=== PATIENT | female | born 1990 | race Caucasian/White ===

== ENCOUNTER → 2016-11-15 | Outpatient (CLI) | payer BC ==
[~2016-11-15] MED LIST: CLX40 PO; PRENTAB26 PO
== END | disposition home or self-care (01) ==
LOC: C.LAB1850 08:46
PROVIDERS: ATTEND Obstetrics & Gynecology
DX: O28.9 Unspecified abnormal findings on antenatal screening of mother (principal)

== ENCOUNTER → 2017-01-11 | Outpatient (CLI) | payer BC ==
[2017-01-11 18:31] LABS: URINE APPEARANCE CLEAR (CLEAR); URINE BILIRUBIN NEG (NEG); URINE COLOR YELLOW; URINE EPITHELIAL CELL AUTO >30 /lpf (0-5); URINE NITRITE NEG (NEG); URINE SPECIFIC GRAVITY 1.014 (1.000-1.030); UROBILINOGEN NEG (NEG)
[2017-01-11 18:48] LABS: MANUAL MICROSCOPIC REQUIRED? NO; REVIEW REQ? NO
== END | disposition home or self-care (01) ==
LOC: C.LABSPEC 17:22
PROVIDERS: ATTEND Obstetrics & Gynecology
DX: Z34.83 Encounter for supervision of other normal pregnancy, third trimester (principal)

== ENCOUNTER → 2017-01-11 | Outpatient (CLI) | payer BC ==
[2017-01-11 16:36] LABS: HEMATOCRIT 34.9 % (37-47)
== END | disposition home or self-care (01) ==
LOC: C.LAB1850 08:21
PROVIDERS: ATTEND Obstetrics & Gynecology
DX: O28.9 Unspecified abnormal findings on antenatal screening of mother (principal)

== ENCOUNTER 2017-01-31 13:55 | Outpatient (CLI) | payer BC ==
[~2017-01-31] VITALS: Ht 172.7 cm; Wt 130.0 kg
[~2017-01-31 13:55] MED LIST changes: -PRENTAB26 PO
[2017-01-31 14:46] VITALS: Ht 172.7 cm; Wt 130.0 kg
[2017-01-31 15:34] LABS: URINE APPEARANCE CLEAR (CLEAR); URINE BILIRUBIN NEG (NEG); URINE COLOR YELLOW; URINE EPITHELIAL CELL AUTO 20-30 /lpf (0-5); URINE NITRITE NEG (NEG); URINE SPECIFIC GRAVITY 1.011 (1.000-1.030); UROBILINOGEN NEG (NEG); ZZUR CULT IF INDIC CLEAN CATCH NO
[2017-01-31 15:37] LABS: MANUAL MICROSCOPIC REQUIRED? NO; REVIEW REQ? NO
== END 2017-01-31 16:23 | disposition home or self-care (01) ==
LOC: C.LD 13:55 → C.OPB 13:55
PROVIDERS: ATTEND Obstetrics & Gynecology
DX: Z34.83 Encounter for supervision of other normal pregnancy, third trimester (principal); Z3A.31 31 weeks gestation of pregnancy

== ENCOUNTER → 2017-03-08 | Outpatient (CLI) | payer BC ==
[~2017-03-08] MED LIST changes: +PRENTAB26 PO
== END | disposition home or self-care (01) ==
LOC: C.LABSPEC 16:29
PROVIDERS: ATTEND Obstetrics & Gynecology
DX: O24.410 Gestational diabetes mellitus in pregnancy, diet controlled (principal)

== ENCOUNTER 2017-03-10 15:11 | Outpatient (CLI) | payer BC ==
[~2017-03-10] VITALS: Ht 172.7 cm; Wt 134.7 kg
[~2017-03-10 15:11] MED LIST changes: -PRENTAB26 PO
[2017-03-10] MEDS ORDERED: PRENTAB26 PO (15:40)
[2017-03-10 16:05] VITALS: Ht 172.7 cm; Wt 134.7 kg
== END 2017-03-10 15:57 | disposition home or self-care (01) ==
LOC: C.LD 15:11 → C.OPB 15:11
PROVIDERS: ATTEND Obstetrics & Gynecology
DX: O62.9 Abnormality of forces of labor, unspecified (principal); Z3A.36 36 weeks gestation of pregnancy

== ENCOUNTER 2017-03-29 16:44 | Inpatient (IN) | payer BC ==
[~2017-03-29] VITALS: Ht 172.7 cm; Wt 137.4 kg
[~2017-03-29 16:44] MED LIST changes: -CLX40 PO; +PRENTAB26 PO
[2017-03-29 17:31] VITALS: Ht 172.7 cm; Wt 137.4 kg
[2017-03-29 17:42] LABS: BASO % 0.1 %; BASO ABS # 0.01 K/uL (0-0.2); EOS % 1.5 %; HEMATOCRIT 34.2 % (37-47); IG% 0.2 %; LYMPH % 16.5 %; LYMPH ABS # 1.43 K/uL (1.2-3.4); MEAN CELL VOLUME 88.6 fL (80-100); MEAN CORPUSCULAR HEMOGLOBIN 30.8 pg (25-34); MEAN PLATELET VOLUME 9.9 fL (7.4-10.4); MONO % 8.1 %; NEUT % 73.6 %; PLATELET COUNT 236 K/uL (130-400); RED BLOOD COUNT 3.86 M/uL (4.2-5.4); WHITE BLOOD COUNT 8.65 K/uL (4.8-10.8)
[2017-03-29 17:44] LABS: COMPLETE YES; MEAN CORPUSCULAR HGB CONC 34.8 g/dl (32-36)
[2017-03-29 17:58] LABS: INR 0.9 (0.9-1.1); PROTHROMBIN TIME (PATIENT) 9.4 SECONDS (9.0-12.0)
[2017-03-29 18:04] LABS: ALKALINE PHOSPHATASE 182 U/L (45-117); ALT/SGPT 19 U/L (12-78); AST/SGOT 16 U/L (15-37); CREATININE 0.55 mg/dl (0.60-1.20); URIC ACID 4.8 mg/dl (2.6-7.2)
[2017-03-29] MEDS ORDERED: LACTATED RINGER'S 1000ML 1,000 ML IV PRN (18:25)
[2017-03-29] MEDS ORDERED: LACTATED RINGER'S 1000ML 500 ML IV PRN (18:28)
[2017-03-29] MEDS: ACETAMINOPHEN 325 MG TAB PO PRN (18:59)
[2017-03-30] MEDS: ACETAMINOPHEN 325 MG TAB PO PRN (01:17)
[2017-03-30] MEDS ORDERED: OXYTOCIN 30 UNITS/500ML NSS IV PRN ×2 (06:00→12:30)
[2017-03-30] MEDS: LACTATED RINGER'S 1000ML 1,000 ML IV SCH ×2 (06:12→10:01)
--- NOTE | 2017-03-30 07:30 | Medical Student: [facility] ---
Med Student History & Physical Date of Service Mar 30, 2017. Chief Complaint Elevated Bp Affecting In Third Trimester History of Present Illness Source: patient Ms. Whitmore is a 26-year-old 2 para 1-0-0-1 who is 39 weeks + 2/7 days with an EDC of 04/04/2017 who presents to L&D after being referred from the outpatient [facility] OB office for elevated blood pressure. Yesterday in the office around 4:30, her blood pressure was measured to be 148/90. Ms. Whitmore denies hypertension at any other point in the other than one other visit where a recheck was found to be normal. She also said that she had no protein in her urine or any associated symptoms at the time. She denied headache, RUQ pain, visual changes, nausea or vomiting yesterday as well. Since she's been here on the unit, she denies vaginal bleeding. She is still feeling movements and has only had leakage of fluids after Dr. Curry ruptured her membranes. She describes her contractions as "sporadic and not timeable yet. " She currently has a Gaytan bulb in place and was started on pitocin. Patient has had a weight gain of 60 pounds during this and has been followed by [facility]. Her blood pressures have ranged 112-148 systolic and 60-90 diastolic. She denied a quad screen for this . Ultrasounds were found to be normal except for poor visualization of the heart. A cardiac echo was performed by Dr. Washington at [facility] on 01/17/17 and was found to be normal. Patients blood type is O+ and CBC was normal on January 11 other than a hematocrit of 34.9. Gonorrhea, chlamydia, HIV, RPR, GBS, RPR and HBsAg were all found to be negative prenatally. She is immune to Rubella and most recent pap smear showed no intraepithelial lesions or malignancy. Her first 1hr glucose tolerance test in September was 138 mg/dl. Current has been complicated only by gestational diabetes mellitus which has been diet- controlled. OB History Patient has one son named Jose R who is 8 years old. He was born vaginally here at the [facility] delivered by Dr. Croft in November 2008 at 8 lbs 0.5 oz without any complications during labor. She also denied any or puerperal problems. ARMATURE CONNECTOR History Menstrual History: Menarche - 12 years old Duration - 4 days Cycle - every 4 weeks Flow - no problems or complaints Intramenstrual bleeding - denies Gynecologic History: Pap smear - Denies any medical problems with her breasts or reproductive organs other than a history of abnormal pap smears. After the of her son, she had repeated abnormal pap smears and subsequently had LEEP in 2008 or 2009. Pap smears have been normal since this procedure. She denies any history of other sexually transmitted infections. Contraception - On 'the pill' in high school but then used Mirena x2 for 7 years. She was on 'the pill' again before stopping it in preparation for the current . Past Medical History 1. Headaches - relieved by Raul. 2. History of anxiety - being followed by Dr. Armstrong. Has not taken citalopram in 2 months. Has not taken Xanax since she has found out she was . Past Surgical History None. Family History Patient reports parents, siblings, and son are all healthy and have no medical problems. Maternal grandmother was diagnosed with diabetes mellitus late in life. Social History Smoking Status: Current Every Day Smoker (2 cigarettes per day) Smokeless Tobacco Use: No Alcohol Use: occasionally (1 glass of wine every 2 months during ) Drug Use: none Marital Status: in relationship (with father of this . First child of different father. 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[employer]) Allergies Coded Allergies: No Known Allergies (Verified , ., 03/29/17) Home Medications Multivit/Min/Iron/Fol Ac/Pren ( Vitamin), 1 TAB PO DAILY Review of Systems Constitutional: No fever, No chills Eyes: No worsening of vision ENT: No hearing loss Respiratory: No shortness of breath Cardiovascular: No chest pain Abdomen: No nausea, No vomiting Psychiatric: No depression symptoms, No anxiety Integumentary: No color change Physical Exam General Appearance: WD/WN, no apparent distress Eyes: normal inspection, PERRL, sclerae normal Neck: supple, no adenopathy, thyroid normal, no carotid bruits Respiratory/Chest: lungs clear, normal breath sounds Cardiovascular: regular rate, rhythm Abdomen / GI: normal bowel sounds, non tender, no organomegaly (no hepatomegaly appreciated) Back: normal inspection, no CVA tenderness (and no paraspinal tenderness) Extremities: + pedal edema Skin: normal color, warm/dry Monitor Baseline: 140s Variability: moderate Accelerations: present Decelerations: none Category: I Laboratory Results 03/29/17 17:35 Red Blood Count 3.86, Mean Corpuscular Volume 88.6, Mean Corpuscular Hemoglobin 30.8, Mean Corpuscular Hemoglobin Concent 34.8, Mean Platelet Volume 9.9, Neutrophils (%) (Auto) 73.6, Lymphocytes (%) (Auto) 16.5, Monocytes (%) (Auto) 8.1, Eosinophils (%) (Auto) 1.5, Basophils (%) (Auto) 0.1, Neutrophils # (Auto) 6.36, Lymphocytes # (Auto) 1.43, Monocytes # (Auto) 0.70, Eosinophils # (Auto) 0.13, Basophils # (Auto) 0.01 03/29/17 17:35 Test 03/29/17 17:35 White Blood Count 8.65 K/uL (4.8-10.8) Red Blood Count 3.86 M/uL (4.2-5.4) Hemoglobin 11.9 g/dL (12.0-16.0) Hematocrit 34.2 % (37-47) Mean Corpuscular Volume 88.6 fL (80-100) Mean Corpuscular Hemoglobin 30.8 pg (25-34) Mean Corpuscular Hemoglobin Concent 34.8 g/dl (32-36) Platelet Count 236 K/uL (130-400) Mean Platelet Volume 9.9 fL (7.4-10.4) Neutrophils (%) (Auto) 73.6 % Lymphocytes (%) (Auto) 16.5 % Monocytes (%) (Auto) 8.1 % Eosinophils (%) (Auto) 1.5 % Basophils (%) (Auto) 0.1 % Neutrophils # (Auto) 6.36 K/uL (1.4-6.5) Lymphocytes # (Auto) 1.43 K/uL (1.2-3.4) Monocytes # (Auto) 0.70 K/uL (0.11-0.59) Eosinophils # (Auto) 0.13 K/uL (0-0.5) Basophils # (Auto) 0.01 K/uL (0-0.2) RDW Standard Deviation 43.3 fL (36.4-46.3) RDW Coefficient of Variation 13.4 % (11.5-14.5) Immature Granulocyte % (Auto) 0.2 % Immature Granulocyte # (Auto) 0.02 K/uL (0.00-0.02) Prothrombin Time 9.4 SECONDS (9.0-12.0) Prothromb Time International Ratio 0.9 (0.9-1.1) Est Creatinine Clear Calc Drug Dose 224.3 ml/min Estimated GFR () 147.9 Estimated GFR (Non- 127.6 Uric Acid 4.8 mg/dl (2.6-7.2) Total Bilirubin 0.3 mg/dl (0.2-1) Direct Bilirubin < 0.1 mg/dl (0-0.2) Aspartate Amino Transf (AST/SGOT) 16 U/L (15-37) Alanine Aminotransferase (ALT/SGPT) 19 U/L (12-78) Alkaline Phosphatase 182 U/L (45-117) Total Protein 6.5 gm/dl (6.4-8.2) Albumin 2.6 gm/dl (3.4-5.0) Assessment and Plan This is a 26-year-old admitted to labor and delivery for referral for hypertension in . Patient has a Gaytan bulb in place and membranes were ruptured by Dr. Curry. Fluid has been draining clear. Labs have been reviewed. Platelets, bilirubin, and AST levels are normal and are not concerning for HELLP syndrome currently. Patient denies symptoms of eclampsia or HELLP syndrome including lack of seizure, scleral icterus, nausea vomiting RUQ or epigastric pain, headache, or visual changes as well. - Continue and maternal monitoring. - Allow patient to take in clear fluids. - Monitor for timeable contractions and signs of true labor. - Patient to be getting epidural for pain control. Anticipate normal spontaneous vaginal delivery.
[2017-03-30] MEDS ORDERED: BUPIVACAINE 0.25% 30 ML VIAL ONE (09:24)
[2017-03-30] MEDS ORDERED: EpHEDrine SULFATE INJ 50 MG/ML AMP ONE (09:25)
[2017-03-30] MEDS ORDERED: FENTANYL 2MCG/ML ROPIV 1.25MG/ML 100ML BAG EPI ONE (09:25)
[2017-03-30] MEDS ORDERED: FENTANYL CITRATE INJ 50 MCG/1 ML 2 ML VIAL ONE (09:25)
[2017-03-30] MEDS ORDERED: LACTATED RINGER'S 1000ML 500 ML IV PRN (11:05)
[2017-03-30] MEDS ORDERED: NALOXONE HCL INJ 1 MG in SODIUM CHLORIDE 0.9% 1000ML 1,000 ML IV PRN (11:05)
[2017-03-30] MEDS ORDERED: NALOXONE HCL INJ 0.4 MG/1 ML VIAL/CARP IV PRN (11:15)
[2017-03-30] MEDS ORDERED: ONDANSETRON INJ 2 MG/ML 2 ML VIAL IV PRN (11:15)
[2017-03-30] MEDS ORDERED: DiphenhydrAMINE HCL 50 MG/ML VIAL IV PRN (11:15)
[2017-03-30] MEDS ORDERED: NALBUPHINE HCL INJ 10 MG/ML AMP IV PRN (11:15)
[2017-03-30] MEDS ORDERED: EpHEDrine SULFATE INJ 50 MG/ML AMP IV PRN (11:15)
[2017-03-30] MEDS ORDERED: FENTANYL 2MCG/ML ROPIV 1.25MG/ML 100ML BAG EPI PRN (11:15)
[2017-03-30] MEDS ORDERED: BENZOCAINE 20% AER SPR 82.5 GM CAN EXT PRN (12:30)
[2017-03-30] MEDS ORDERED: LANOLIN OINT EXT PRN ×2 (12:30)
[2017-03-30] MEDS ORDERED: ACETAMINOPHEN 325 MG TAB PO PRN (12:30)
[2017-03-30] MEDS ORDERED: HYDROCORTISONE ACETATE 25 MG SUPP PR PRN (12:30)
[2017-03-30] MEDS ORDERED: DIPHTHERIA/TETANUS/PERTUSSIS 0.5 ML SYR/VIAL IM. ONE (12:30)
[2017-03-30] MEDS ORDERED: SUPERCREAM 0.870 % 15GM JAR EXT PRN (12:30)
[2017-03-30] MEDS ORDERED: ACETAMINOPHEN/CODEINE 300/30MG TAB PO PRN ×2 (12:30)
[2017-03-30] MEDS ORDERED: OXYCODONE/ACETAMINOPHEN 5-325 TAB PO PRN (12:30)
--- NOTE | 2017-03-30 12:36 | Medical Student: [facility] ---
Medical Student Delivery Note Anila Whitmore is a 26-year-old G2 now P2 at 39 weeks + 2/7 days with a history of diet-controlled gestational diabetes who was admitted to L&D for elevated blood pressure at 148/90 measured in the office. Labor was aided by Pitocin and Gaytan bulb catheter. After the catheter was removed, Dr. Curry manually ruptured membranes. The patient progressed to complete dilation, complete effacement, and 0 station and began to push. A viable female infant weighing 3651 grams at 11:58AM was delivered. There was no nuchal cord, and mouth and nose were bulb suctioned. The infant was delivered in the right occiput transverse position by Dr. Guerda Anderson, assisted by Kimmy Jennings, MS3. A pop was heard during delivery during delivery of the shoulder. The cord was clamped twice and transected by the father, and cord blood was collected. The was taken by the awaiting nurse for drying and evaluation. The placenta was then delivered with jarett downward traction and uterine massage, and it was found the be intact with a 3 vessel cord. The fundus hardened with some bleeding without requiring intervention. The posterior vagina had a first degree laceration that was repaired with a single suture of 3-0 Vicryl in a figure-of-8 fashion. scores were 8 and 9. Placenta and umbilical artery blood gas were sent. EBL was 400 cc.
--- NOTE | 2017-03-30 13:49 | Anesthesia Procedure Note ---
Anesthesia Epidural Removal Nt Date & Time Mar 30, 2017 at 13:49 Vital Signs Pain Intensity: 6.0 Notes Mental Status: alert / awake / arousable, participated in evaluation Nausea / Vomiting: adequately controlled Pain: adequately controlled Airway Patency, RR, SpO2: stable & adequate BP & HR: stable & adequate Hydration State: stable & adequate Neuraxial Anesthesia: was administered Anesthetic Complications: no major complications apparent, pt satisfied with anesthetic care Epidural: removed without complications, with tip intact
[2017-03-30 16:00] VITALS: BP 137/90; PULSE 94; TEMP 37
[2017-03-30] MEDS: IBUPROFEN 600 MG TAB PO PRN ×2 (17:08→20:53)
--- NOTE | 2017-03-30 17:58 | DELIVERY SUMMARY ---
DATE OF OPERATION: 03/30/2017 PREOPERATIVE DIAGNOSES: 1. Intrauterine at 39-1/7 weeks. 2. Gestational hypertension. 3. Diet controlled gestational diabetes. 4. Obesity. POSTOPERATIVE DIAGNOSES: 1. Same. 2. Mild shoulder dystocia. PROCEDURES: 1. Gaytan bulb catheter for cervical ripening. 2. Pitocin augmentation. 3. Amniotomy for clear fluid. 4. Epidural anesthetic. 5. Normal spontaneous vaginal delivery. 6. First degree perineal laceration with repair. SURGEON: Dr. Croft. ANESTHESIA: Epidural. ESTIMATED BLOOD LOSS: 400 mL. DESCRIPTION OF PROCEDURE: The patient was found to have blood pressures of 140s/90s in the office at 39-1/7 weeks. She was evaluated in labor and delivery. Her labs were normal, she had no signs or symptoms of preeclampsia, but given the elevated blood pressures, and the gestational age it was determined she was an appropriate candidate for induction of labor. was also complicated by diet controlled gestational diabetes; however, at her last ultrasound, the abdominal circumference was noted to be in the 96th percentile on March 15 at 37 weeks. The patient was admitted, she underwent a Gaytan bulb cervical ripening on the evening of . On the morning of the the Gaytan bulb was removed, she was 4/100/-2, she was ruptured for clear fluid and Pitocin was started. Once she was 6 cm she underwent an epidural anesthetic, which was unfortunately not very helpful for her. However, she did progress quite rapidly from 6 to 8 to 9 and then complete and zero station. She felt an urge to push, pushed very effectively to deliver a viable female infant over intact perineum. It appeared that the head restituted in [place] presentation, there was no nuchal cord and I attempted to deliver the anterior shoulder and a shoulder dystocia was identified. The shoulder dystocia was resolved with suprapubic pressure and Flaquita maneuver. As the shoulder was being delivered, it was discovered it was the left shoulder that was anterior, the head then turned and restituted in [place] presentation and the rest of the baby was then delivered. From delivery of the head to delivery of the shoulder was approximately 40 seconds. The cord was clamped and cut. The infant was taken over to the waiting octave board racker for drying and attention. Cord blood and gasses were obtained. The placenta was delivered spontaneously intact with a 3-vessel cord. Cervix, sulci and rectum were examined and found to be intact as well as the perineum. A small vaginal laceration at the introitus was repaired with 1 figure of eight suture of 3-0 Vicryl. Hemostasis was obtained with dilute Pitocin and fundal massage. Apgars were 8 and 9. Weight is pending. Mother and baby doing well at the end of the delivery. I attest to the content of the Intraoperative Record and any orders documented therein. Any exceptions are noted below. MTDD
[2017-03-30 19:15] VITALS: BP 137/88; PULSE 93; TEMP 36.8
[2017-03-30] MEDS: DOCUSATE SODIUM 100 MG CAP PO SCH (20:05)
[2017-03-31 00:30] VITALS: BP 138/83; PULSE 82; TEMP 36.5; O2SAT 97
[2017-03-31 03:40] VITALS: BP 136/84; PULSE 85; TEMP 36.5; O2SAT 97
[2017-03-31] MEDS: IBUPROFEN 600 MG TAB PO PRN (05:39)
--- NOTE | 2017-03-31 06:17 | Medical Student: [facility] ---
Med Student ARMHOLE BASTER HAND Progress Nt Date of Service Mar 31, 2017. Subjective conversation w/ patient Ambulation: ambulating normally Voiding: no voiding problems Passing Gas: Yes Diet Tolerance: Regular Diet Feeding Type: Breast Feeding Pain: "crampy" and low back pain - tolerating well Notes: Anila is a 26-year-old with gestational hypertension who is day 1 for normal spontaneous vaginal delivery. She is doing "great" and has no complaints currently. Continues to deny headache, nausea, vomiting, and abdominal pain. Review of Systems Constitutional: No fever, No chills Respiratory: No shortness of breath Cardiac: No chest pain Breast: No problem reported Abdomen: No nausea, No vomiting Objective Vital Signs Date Time Temp Pulse Resp B/P (MAP) Pulse Ox O2 Delivery O2 Flow Rate FiO2 03/31/17 03:40 36.5 85 20 136/84 (101) 97 Room Air 03/31/17 00:30 97 Room Air 03/31/17 00:30 36.5 82 20 138/83 (101) 97 Room Air 03/30/17 19:15 36.8 93 20 137/88 (104) Room Air 03/30/17 16:00 Room Air 03/30/17 16:00 37.0 94 20 137/90 (106) Room Air Physical Exam General Appearance: WELL-APPEARING, WD/WN Respiratory/Chest: lungs clear Cardiovascular: regular rate, rhythm, no gallop, + systolic murmur (likely of normal ) Abdomen: normal bowel sounds, soft Fundus: Firm Extremities: no calf tenderness, + pedal edema (trace on left leg) No paraspinal or CVA tenderness Laboratory Results Last 24 Hours Test 03/31/17 04:44 Assessment and Plan Post- Day Number: 1 Continue Routine Care: Anila is a 26-year-old with gestational hypertension who is day 1 for normal spontaneous vaginal delivery. - Continue routine care - Discuss signs of HELLP syndrome and eclampsia to recognize with the patient.
[2017-03-31 07:32] LABS: HEMATOCRIT 30.4 % (37-47)
--- NOTE | 2017-03-31 07:48 | Progress Note ---
Subjective Mar 31, 2017. Subjective conversation w/ patient, physical exam, lab review Ambulation: ambulating normally Voiding: no voiding problems Passing Gas: Yes Diet Tolerance: Regular Diet Lochia: Small Feeding Type: Breast Feeding Pain: controlled Comment: Patient feeling really well. Notes no s/s of pet. Inducted for ghtn Objective Vital Signs Date Time Temp Pulse Resp B/P (MAP) Pulse Ox O2 Delivery O2 Flow Rate FiO2 03/31/17 03:40 36.5 85 20 136/84 (101) 97 Room Air 03/31/17 00:30 97 Room Air 03/31/17 00:30 36.5 82 20 138/83 (101) 97 Room Air 03/30/17 19:15 36.8 93 20 137/88 (104) Room Air 03/30/17 16:00 Room Air 03/30/17 16:00 37.0 94 20 137/90 (106) Room Air Physical Exam General Appearance: WELL-APPEARING, WD/WN, NO APPARENT DISTRESS Abdomen: normal bowel sounds, non tender, soft Fundus: Firm, Non-Tender, Relation to Umbilicus (at u) Extremities: non-tender, normal inspection, + pedal edema (trace) Laboratory Results Last 24 Hours Test 03/31/17 07:16 Hemoglobin 10.1 g/dL Hematocrit 30.4 % Assessment and Plan Post- Day#: 1 Continue Routine Care: Doing very well. No s/s of pet. Pressures ok. Will d/c after lunch. Return to clinic in one week for bp check.
--- NOTE | 2017-03-31 07:50 | Discharge Instructions ---
Discharge Instructions Date of Service Mar 31, 2017. Admission Reason for Admission: Elevated Bp Affecting In Third Trimester Discharge Discharge Diagnosis / Problem: s/p vaginal delivery Discharge Goals Goal(s): Routine recovery after delivery Activity Recommendations Activity Limitations: per Instructions/Follow-up section . Instructions / Follow-Up Instructions / Follow-Up ACTIVITY RECOMMENDATIONS: * Gradual return to full activity over the next 2-3 weeks. * No lifting - nothing heavier than baby over the next 2-3 weeks. * Do not engage in vigorous exercise, sexual activity or sports until cleared by your physician. * Do not drive or operate any motorized equipment until cleared by your physician. * You may shower/bathe daily. MEDICATIONS: For discomfort or pain, you may use Acetaminophen (Tylenol), Ibuprofen (Advil), or Naproxen (Aleve) following the package directions. For constipation you may use Colace following the package directions. BREAST CARE: If you are not breast feeding: * Wear a supportive bra 24 hours a day for one to two weeks. * Avoid stimulating your breasts and nipples as much as possible during the first few weeks after delivery. * When taking a shower, have the warm water hit your back, not breasts. * When your breasts feel full, apply ice packs. Usually three to four times a day helps ease the discomfort. * Take a mild pain medication (Tylenol / Motrin) when you are uncomfortable. If breast feeding: * Use breast milk to lubricate nipples. Lansinoh cream may be used for sore nipples. You do not need to remove cream prior to breast feeding. If using a different brand of cream, check the label for directions regarding removal of cream prior to nursing. * Wear a supportive bra. * If having problems with breasts or breast feeding, call a senior consultant or your health care provider. EPISIOTOMY CARE: After delivery, if you have an episiotomy (stitches), the following steps will ease discomfort and aid healing. * For the first 24 hours after delivery, place ice packs next to your episiotomy to help reduce swelling. * After the first 24 hour-period, sitz baths, either portable or in the tub, are suggested. A shower with a shower arm sprayed over the episiotomy may be comforting. * Nikki care should be done after each voiding and bowel movement. Squirt warm water from a plastic bottle over the perineum (region of the body between the anus and urinary opening) and pat dry. * Use Dermoplast to ease discomfort. Shake container. [place] directly over the episiotomy. Place a Tucks on a clean sanitary pad next to your episiotomy. SPECIAL CARE INSTRUCTIONS: When you are discharged from the hospital, it is important for you to follow the instructions listed below: * During the first week at home, you should be able to care for yourself and your baby. In addition, the usual light household activities are encouraged. * Limit your activities to the way you feel. Do not try to clean the house or move furniture. Be sensible. * If you actively engage in sports and have done so up until the time of your delivery, you may resume these activities as soon as you feel able. This may take up to one month or even longer. Use good judgment. * Continue to take your vitamins for at least six weeks after the of your baby. * Your diet need not be limited unless you were on a special diet before your delivery. Breast-feeding mothers need around 2500 calories per day and at least 64-80 ounces of fluid per day (8 to 10 glasses). * You should eat foods from the four major food groups. Crash diets or fad diets are to be avoided. Eating lean meats, fresh fruits and vegetables, low-fat dairy products, high fiber foods and a regular exercise program, will help you get back to your pre- weight without putting your health at risk. * Constipation is sometimes a problem after delivery. Take a mild laxative as needed. If breast feeding, Milk of Magnesia is acceptable to use. You may use a suppository or Fleets enema if no episiotomy. * A daily shower or tub bath is suggested. Be sure to thoroughly and gently dry the perineum. * A bloody vaginal discharge will usually continue until around four weeks post . A small amount of bleeding may continue for as long as six weeks. Vaginal discharge changes from the bright red bleeding after delivery to pink then brownish and finally yellowish-pink before becoming white and disappearing. * Bleeding may increase with activity. Your first period may come in 4-8 weeks. If you are breast feeding, your period may be delayed even longer. * [place] (sex) can begin whenever both you and your partner feel comfortable and do not have any form of genital infection. It is recommended that you wait at least six weeks for internal and external healing to occur. If you have questions, please talk to your health care practitioner. A condom should be used to prevent infection and . * Foreplay, gentle intercourse and lubrication is very important the first several times to prevent pain. A water-based lubricant such as K-Y jelly or Astroglide may be used. * If you have RH negative blood and your baby is RH positive, you will receive RHOGAM by injection prior to discharge. The nurse will give you a card to keep with you that has the date and place that you received RHOGAM after delivery. * During your care, you had a Rubella screen done to check for the presence of rubella antibodies in your blood. If your test was negative, you will receive a Rubella vaccine prior to discharge. This vaccine may cause a fever, soreness at the injection site and flu-like symptoms. If these symptoms persist, notify your health care practitioner. is not advised for one month after a Rubella vaccine. * Verbalizes understanding of car seat law as reviewed with patient nursing. * Car Seat hand-out given and reviewed with patient by nursing. * Shaken baby information reviewed with patient by nursing. Call you doctor if: * Heavy bleeding (saturating several pads an hour) or passing clots the size of your fist. * A fever >101 degrees F (38.3 degrees C) on two occasions four hours apart and /or chills. * Unusual pain in the pelvic or vaginal areas. * "Baby Blues" lasting longer than two weeks. If you have any questions or concerns, call your health care practitioner at . FOLLOW UP VISIT: * Blood pressure check in the office in one week. * Please call the office at to schedule a 6 week examination. It is important you keep this appointment. It is important for you to make arrangements for either yearly or twice yearly check-ups thereafter. Current Hospital Diet Patient's current hospital diet: Regular OB Diet Discharge Diet Recommended Diet: Regular Diet Pending Studies Studies pending at discharge: no Medical Emergencies . Who to Call and When: Medical Emergencies: If at any time you feel your situation is an emergency, please call 911 immediately. . Non-Emergent Contact Non-Emergency issues call your: Produce Team Lead . . "Provider Documentation" section prepared by Essence Croft. . VTE Core Measure Inpt VTE Proph given/why not?: Treatment not indicated
[2017-03-31 08:00] VITALS: BP 142/93; PULSE 76; TEMP 36.5
[2017-03-31] MEDS ORDERED: PRENATAL VITAMIN TAB PO SCH (08:00)
[2017-03-31] MEDS: DOCUSATE SODIUM 100 MG CAP PO SCH (08:06)
[2017-03-31 11:02] VITALS: BP 139/95; PULSE 83; TEMP 36.6
[2017-03-31 13:55] VITALS: BP_DIAS 95; PULSE 83; TEMP 36.6
== END 2017-03-31 14:15 | disposition home or self-care (01) | DRG 775 ==
LOC: C.OPB 16:44 → C.LD 16:44 → C.OPB 18:26 → C.OBG 03-30 16:28
PROVIDERS: ADMIT Obstetrics & Gynecology; ATTEND Obstetrics & Gynecology
PROC: 3E0P7GC Introduction of Other Therapeutic Substance into Female Reproductive, Via Natural or Artificial Opening (ICD-10-PCS; principal; 2017-03-29)
PROC: 0HQ9XZZ Repair Perineum Skin, External Approach (ICD-10-PCS; 2017-03-30)
PROC: 3E033VJ Introduction of Other Hormone into Peripheral Vein, Percutaneous Approach (ICD-10-PCS; 2017-03-30)
PROC: 10907ZC Drainage of Amniotic Fluid, Therapeutic from Products of Conception, Via Natural or Artificial Opening (ICD-10-PCS; 2017-03-30)
PROC: 10E0XZZ Delivery of Products of Conception, External Approach (ICD-10-PCS; 2017-03-30)
DX: O13.4 Gestational [pregnancy-induced] hypertension without significant proteinuria, complicating childbirth (principal); Z68.42 Body mass index [BMI] 45.0-49.9, adult; Z37.0 Single live birth; O24.420 Gestational diabetes mellitus in childbirth, diet controlled; O99.214 Obesity complicating childbirth; E66.9 Obesity, unspecified; O70.0 First degree perineal laceration during delivery; O76 Abnormality in fetal heart rate and rhythm complicating labor and delivery; O66.0 Obstructed labor due to shoulder dystocia; O99.334 Smoking (tobacco) complicating childbirth; F17.210 Nicotine dependence, cigarettes, uncomplicated; Z3A.39 39 weeks gestation of pregnancy

== ENCOUNTER → 2017-05-26 | Outpatient (CLI) | payer BC ==
[2017-05-26 15:54] LABS: PREG INTERNAL NEGATIVE QC NEG CLEAR BACKGROUND; PREG INTERNAL POSITIVE QC POS CONTROL LINE
== END | disposition home or self-care (01) ==
LOC: C.LABSPEC 14:23
PROVIDERS: ATTEND Obstetrics & Gynecology
DX: N91.2 Amenorrhea, unspecified (principal)

== ENCOUNTER → 2017-05-26 | Outpatient (CLI) | payer BC | END | disposition home or self-care (01) | LOC: C.PAPS 13:52 | PROVIDERS: ATTEND Obstetrics & Gynecology | DX: Z01.419 Encounter for gynecological examination (general) (routine) without abnormal findings (principal) ==

== ENCOUNTER → 2017-07-12 | Outpatient (CLI) | payer BC ==
[2017-07-12 09:37] LABS: PREG INTERNAL NEGATIVE QC NEG CLEAR BACKGROUND; PREG INTERNAL POSITIVE QC POS CONTROL LINE
== END | disposition home or self-care (01) ==
LOC: C.LAB 08:31
PROVIDERS: ATTEND Physician Assistant
DX: Z30.430 Encounter for insertion of intrauterine contraceptive device (principal)

== ENCOUNTER → 2017-07-12 | Outpatient (CLI) | payer BC ==
[2017-07-15 02:24] LABS: CHLAMYDIA TRACH RNA*** NOT DETECTED (NOT DETECTED); GC (NEIS GONORRHOEAE)RNA** NOT DETECTED (NOT DETECTED)
== END | disposition home or self-care (01) ==
LOC: C.LABSPEC 13:56
PROVIDERS: ATTEND Physician Assistant
DX: Z30.430 Encounter for insertion of intrauterine contraceptive device (principal)